=== PATIENT | male | born 1985 | race African-American/Black ===

== ENCOUNTER 2025-08-07 09:35 | Emergency (ER) | payer OTHER, MEDICAID, SELFPAY ==
[2025-08-07 09:39] VITALS: PULSE 109; RESP 16; TEMP 36.3; O2SAT 100
[2025-08-07 09:49] VITALS: BP 222/116
--- NOTE | 2025-08-07 10:00 | RT.EKG_ITS ---
APPROVED REPORT Exam: Resting ECG Reason for Exam: weakness Patient Location: E HR:82 bpm ECG Measurements Heart Rate 82 AXIS OK 155 P 59 QRSd 92 QRS 22 QT 379 T 43 QTc 443 Conclusion Sinus rhythm...normal P axis, V-rate 60- [address] elevation, anterior leads...ST >0.15mV in V1-V4
[2025-08-07 10:10] VITALS: BP 171/85; PULSE 102; PULSE 97; RESP 15
[2025-08-07 10:19] LABS: Abs Immature Grans 0.01 10^3/uL (0.0-0.06); HCT 46.9 % (40.0-50.0); HGB 15.9 g/dL (13.5-17.5); Immature Grans % 0.2 %; MCH 29.0 pg (27.0-33.0); MCHC 33.9 % (32.0-36.0); MCV 85 fL (80-95); MPV 9.1 fL (8.0-11.0); Platelet Count 317 10^3/uL (130-400); RBC 5.49 10^6/uL (4.36-5.78); RDW 12.8 % (11.8-14.1); RDW-SD 39.8 fL; WBC 4.65 10^3/uL (4.4-10.8)
[2025-08-07 10:31] VITALS: BP 203/170; PULSE 76; RESP 14; O2SAT 100
[2025-08-07 10:34] LABS: Troponin I 6 ng/L (<54)
[2025-08-07 10:37] LABS: Lipase 26 U/L (<53); TSH (W/Ref FT4) 1.16 uIU/mL (0.55-4.78)
[2025-08-07 10:38] LABS: ALT 21 U/L (10-49); AST 25 U/L (<34); Albumin 4.9 g/dL (3.2-5.0); Alkaline Phosphatase 117 U/L (46-116); Anion Gap 11.1 mmol/L (3-11); BUN 14 mg/dL (9-23); Bilirubin, Total 0.6 mg/dL (0.2-1.2); CO2 27.9 mmol/L (20.0-31.0); Calcium 9.7 mg/dL (8.3-10.6); Chloride 103 mmol/L (98-107); Glucose 92 mg/dL (74-106); Potassium 3.6 mmol/L (3.5-5.1); Sodium 142 mmol/L (136-145); Total Protein 8.4 g/dL (5.7-8.2)
[2025-08-07 10:46] VITALS: BP 225/130
[2025-08-07] MEDS: ACETAMINOPHEN 500 MG/50 ML BAG 200 MG IVPB (10:49)
[2025-08-07] MEDS: predniSONE 20 MG TAB 40 MG PO (10:50)
[2025-08-07] MEDS: amLODIPine 5 MG TAB PO (10:53)
--- NOTE | 2025-08-07 10:57 | W.ED.GENAD ---
Discharge Plan Disposition Patient Disposition: Home Condition: Stable Discharge Details Clinical Impression: Acute lumbar radiculopathy, Severe uncontrolled hypertension Primary Care Provider: Amisha Shaw ED Provider: Ava Nathan Home Meds and New Rx's Prescriptions: New amlodipine 5 mg tablet 5 mg PO DAILY Qty: 60 0RF orphenadrine citrate 100 mg tablet extended release 100 mg PO BID Qty: 14 0RF prednisone 10 mg tablet 10 mg PO DIRECTED Qty: 30 0RF Rx Instructions: see taper instructions: take 4 tabs x3 days, 3 tabs x3 days, 2 tabs x3 days, 1 tab x3 days Discontinued olmesartan 20 mg tablet 20 mg PO DAILY Discharge Instructions Instructions: Radiculopathy (DC), Herniated Disc Exercises, High Blood Pressure ED Additional Instructions: Take the prednisone for a likely herniated disc in your back, I am referring you to PT, if you continue to have pain despite the taper and physical therapy you may need an MRI, please schedule an appointment for next week for reassessment You may take the Flexeril as needed for musculoskeletal pain, this will likely make you tired so I recommend taking it at night Take Tylenol 500 mg every 6 hours as needed for additional pain control, do not exceed 3 g of Tylenol daily Start taking the amlodipine, check your blood pressure every day or 2 and keep a chart, if your blood pressure is still higher than 170 systolic, I would recommend increasing your blood pressure from 5 mg to 10 mg on Tuesday and seeing your doctor about a week for recheck. You may benefit from the addition of hydrochlorothiazide at your doctor's discretion at this time. I am also placing a cardiology referral as you have had difficulty tolerating multiple medications Please return immediately should you have weakness in your leg, worsening pain, fever or chills, abdominal pain worsening headache, or should any new concerns arise Stand Alone Forms: Physical Therapy Referral, Portal Information, Work Release Referrals: Amisha Shaw [Primary Care Provider, Medicine] HPI General Date/Time Provider Initiated Documentation: 08/07/25 09:38. HPI Narrative: This 39-year-old male with history of poorly controlled chronic hypertension presents with back pain for the past week with radiation down his left lower extremity. He states he has some numbness in his upper thigh and anterior burger. He denies any weakness or changes in bowel or bladder. He does have a mild headache he states he wakes up with a headache frequently. States as the day progresses the headache usually improves denies any chest pain or shortness of breath falls or injuries. Denies history of illicit substance use. Occasionally smokes tobacco and denies any alcohol consumption. He also reports some pain in his lower back that is made worse with movement. Denies any groin numbness and has not had any loss of control or retention of bowel or bladder. Related Data Home Medications ?Medication ?Instructions ?Recorded ?Confirmed amlodipine 5 mg tablet 5 mg PO DAILY #60 tabs 08/07/25 orphenadrine citrate 100 mg 100 mg PO BID #14 tabs 08/07/25 tablet,extended release prednisone 10 mg tablet 10 mg PO DIRECTED #30 tabs 08/07/25 Previous Rx's ?Medication ?Instructions ?Recorded amlodipine 5 mg tablet 5 mg PO DAILY #60 tabs 08/07/25 orphenadrine citrate 100 mg 100 mg PO BID #14 tabs 08/07/25 tablet,extended release prednisone 10 mg tablet 10 mg PO DIRECTED #30 tabs 08/07/25 Allergies Allergy/AdvReac Type Severity Reaction Status Date / Time shellfish derived Allergy Anaphylaxis Verified 08/07/25 09:43 General Stated Complaint: Nk/Back Pain ROSANA: 3 Exam Narrative Exam Narrative: Alert and oriented 39-year-old male in no acute distress markedly hypertensive on the monitor, positive straight leg raise, vascularly intact all 4 extremities, no abdominal bruit or pulsatile mass. Reproducible tenderness over the paraspinal muscles over L4-L5, mildly diminished sensation to L4-L5 dermatomes dorsi and plantarflexion intact, strength intact bilateral lower and upper extremities, cranial nerves II through XII intact, ambulatory with steady gait negative [id number], negative [id number], pronator drift, no CVA tenderness Course Vital Signs Vital signs: Vital Signs Temperature 36.3 C L 08/07/25 09:39 Pulse 109 H 08/07/25 09:39 Respiratory Rate 16 08/07/25 09:39 Pulse Oximetry 100 08/07/25 09:39 Temperature 36.3 C L 08/07/25 09:39 Temperature Source Tympanic 08/07/25 09:39 Pulse 76 08/07/25 10:31 Pulse 76 08/07/25 10:31 Respiratory Rate 14 08/07/25 10:31 Blood Pressure 225/130 H 08/07/25 10:46 Blood Pressure Mean 161 08/07/25 10:46 Pulse Oximetry 100 08/07/25 10:31 Oxygen Delivery Method Room Air 08/07/25 09:39 Oxygen Flow Rate 0 08/07/25 09:39 Lab/Test Results Lab/Test Results: Laboratory Tests Range/Units 08/07/25 08/07/25 10:10 10:53 WBC (4.4-10.8) 10^3/uL 4.65 RBC (4.36-5.78) 10^6/uL 5.49 Hgb (13.5-17.5) g/dL 15.9 Hct (40.0-50.0) % 46.9 MCV (80-95) fL 85 MCH (27.0-33.0) pg 29.0 MCHC (32.0-36.0) % 33.9 RDW (11.8-14.1) % 12.8 Plt Count (130-400) 10^3/uL 317 MPV (8.0-11.0) fL 9.1 Immature Gran % % 0.2 Neutrophils % % 57.5 Lymphocytes % % 29.2 Monocytes % % 11.2 Eosinophils % % 1.3 Basophils % % 0.6 Nucleated RBC % (0.0-0.3) % 0.0 Absolute Neutrophils (1.2-6.7) 10^3/uL 2.67 Absolute Lymphocytes (1.2-3.4) 10^3/uL 1.36 Absolute Monocytes (0.1-0.8) 10^3/uL 0.52 Absolute Eosinophils (0.0-0.7) 10^3/uL 0.06 Absolute Basophils (0.0-0.2) 10^3/uL 0.03 Sodium (136-145) mmol/L 142 Potassium (3.5-5.1) mmol/L 3.6 Chloride (98-107) mmol/L 103 Carbon Dioxide (20.0-31.0) mmol/L 27.9 Anion Gap (3-11) mmol/L 11.1 H BUN (9-23) mg/dL 14 Creatinine (0.73-1.18) mg/dL 1.12 Est GFR (CKD-EPI 2021) (mL/min/1.73m2) 73.48 Glucose (74-106) mg/dL 92 Calcium (8.3-10.6) mg/dL 9.7 Total Bilirubin (0.2-1.2) mg/dL 0.6 AST (<34) U/L 25 ALT (10-49) U/L 21 Alkaline Phosphatase (46-116) U/L 117 H Troponin I (<54) ng/L 6 Cancelled Total Protein (5.7-8.2) g/dL 8.4 H Albumin (3.2-5.0) g/dL 4.9 Lipase (<53) U/L 26 TSH (0.55-4.78) uIU/mL 1.16 Medical Decision Making Results: Blood cell count within normal limits, CBC unremarkable, CMP unremarkable, troponin negative without chest pain, TSH within normal limits, pending urinalysis Assessment and plan: I suspect patient has 2 different concerns. His headache may be elevated from his blood pressure although it sounds like his blood pressure is baseline for him, he checks it once weekly and has not tolerated blood pressure meds. States is usually worse in the morning. He has a nonfocal neurological exam. I will give him amlodipine as it sounds like he has not tolerated losartan or lisinopril. I would probably add hydrochlorothiazide if he is able to tolerate it thereafter. I will give him the first dose of amlodipine 5 mg in the emergency department we talked about the risk of peripheral edema. EKG is nonischemic in terms of the back pain I suspect patient has lumbar radiculopathy and I will supply a prednisone taper and refer to physical therapy. Patient may need an MRI if he continues to have symptoms despite interventions. He also need work restrictions which I will supply. He will need close outpatient follow-up with his primary care physician to monitor both blood pressure and they lumbar radiculopathy. I have very low suspicion for aortic aneurysm clinically. Very low suspicion for cauda equina syndrome based on assessment and annotation with steady gait. At this time patient's blood pressure severely elevated although he is asymptomatic with this and I think the risk of lowering patient's blood pressure quickly outweighs any benefit. I will start him on amlodipine 5 mg and increase to 10 mg. I will add prednisone taper for the next week and Flexeril as needed for pain. Patient will be on lifting restrictions. Also place a cardiology referral secondary to severe uncontrolled hypertension with inability to tolerate multiple medications. 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 PFSH All Active Problems (Updated 08/07/25 @ 11:48 by BERNARDO Wang) Severe uncontrolled hypertension (Acute) Acute lumbar radiculopathy (Acute) Medical History (Updated 08/07/25 @ 11:48 by BERNARDO Wang) Hemorrhage of rectum and anus Cyst of skin Rectal prolapse Essential hypertension Nicotine dependence Major depressive disorder Nasal polyp Family History (Updated 01/11/24 @ 16:12 by Tiki Littlejohn RN) Other Hypertension Social History (Updated 01/11/24 @ 16:13 by Tiki Littlejohn RN) Smoking/Tobacco Use Status: Former Tobacco Use Smoking risk assessment performed?: Yes Alcohol Intake: current Alcohol Intake frequency: holidays/special occasions only Drug use: Socially Substance use type: marijuana Household members: significant other and family PAWSS Have you Been Recently Intoxicated or Drunk Within the Last 30 days?: No Have you Ever Experienced Previous Episodes of Alcohol Withdrawal?: No Have you ever Experienced Withdrawal Seizures?: No Have you ever Experienced Delirium Tremens(DT)s?: No Have you ever undergone Alcohol Rehabilitation Treatment (i.e, inpt ot outpatient treatment programs)?: No Have you ever Experienced Blackouts?: No Have you ever Combined Alcohol with other Downers within the last 90 days?: No Have you ever Combined Alcohol with any other Substance of Abuse during the last 90 days?: No Result: 0
--- NOTE | 2025-08-07 11:24 | NUR.NOTE ---
Nursing Notes: pt reports his head ache is gone
[2025-08-07 11:51] LABS: Glucose Negative (Negative)
[2025-08-07] MEDS: Ketorolac 15 MG/ML VIAL 7.5 MG IVP (11:57)
[2025-08-07 12:02] LABS: C & S Indicated? No; RBC Negative HPF (0-2); WBC 0-2 HPF (0-5)
[2025-08-11 18:46] LABS: Renin Activity, Plasma 1.0 ng/mL/h
[2025-08-12 01:27] LABS: Aldosterone, P 15 ng/dL (<=21)
== END 2025-08-07 13:12 | disposition home or self-care (01) ==
PROVIDERS: Emergency Provider Physician Assistant; PCP Family Medicine
DX: M54.16 Radiculopathy, lumbar region (principal); I10 Essential (primary) hypertension
CPT/HCPCS: 99284 ×2; 36415; 96374; 96375; 80053; 82088; 83690; 93005; 81003; 81015; 84244; 84443; 84484; 85025; 93010; J0131; J1885; J7512